=== PATIENT | female | born 1985 | race Two or more races ===

== ENCOUNTER 2022-11-27 05:14 | Emergency (ER) | payer OTHER ==
[~2022-11-27] VITALS: Ht 154.9 cm; Wt 59.0 kg
--- NOTE | 2022-11-27 06:00 | NUR ---
BIBS FROM HOME WITH CC OF SKIN RASHES ALL OVER THE BODY SINCE 11/20/22 (ITCHY) TOOK BENADRYL AND APPLIED CALAMINE BUT NO RELIEF. PATIENT DENIES ANY CHANGES IN FOOD, DETERGENT OR ROUTINE. PATIENT AOX4, PLACED IN GOWN AND POX AND MONITOR
[2022-11-27] MEDS ORDERED: PRED50TA PO (06:05)
--- NOTE | 2022-11-27 06:05 | NUR ---
DR MORALES AT BEDSIDE
[2022-11-27 06:16] VITALS: TEMP 98.6
--- NOTE | 2022-11-27 06:16 | NUR ---
Patient discharged to home in stable condition. Written and verbal after care instructions given. Patient verbalizes understanding of instruction.
[2022-11-27 06:17] VITALS: BP 128/77; O2SAT 97
== END 2022-11-27 06:17 | disposition home or self-care (01) ==
LOC: ER 05:17
DX: L30.9 Dermatitis, unspecified (principal); Z98.890 Other specified postprocedural states; Z79.899 Other long term (current) drug therapy